=== PATIENT | male | born 2000 | race Caucasian/White ===

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

== ENCOUNTER 2021-03-18 11:26 | Emergency (ER) | payer OTHER ==
[~2021-03-18] VITALS: Ht 180.3 cm; Wt 86.2 kg
[~2021-03-18 11:26] MED LIST changes: +CLINDAMYCIN HC300 MG PO; +HYDROCODONE-AC1 EAC1 PO
[2021-03-18] MEDS ORDERED: ZOFRAN4 MG PO (12:57)
== END 2021-03-18 13:18 | disposition home or self-care (01) ==
LOC: ED 11:26
DX: M25.552 Pain in left hip (principal); Z20.822 Contact with and (suspected) exposure to COVID-19; R11.10 Vomiting, unspecified; K21.9 Gastro-esophageal reflux disease without esophagitis; F17.200 Nicotine dependence, unspecified, uncomplicated

== ENCOUNTER 2021-11-05 19:47 | Emergency (ER) | payer OTHER ==
[~2021-11-05 19:47] MED LIST changes: +ZOFRAN4 MG PO
[2021-11-05] MEDS ORDERED: NAPROXEN250 MG PO (21:05)
== END 2021-11-05 21:31 | disposition home or self-care (01) ==
LOC: ED 19:47
DX: S60.222A Contusion of left hand, initial encounter (principal); X58.XXXA Exposure to other specified factors, initial encounter; Y93.89 Activity, other specified; Y92.89 Other specified places as the place of occurrence of the external cause; Y99.8 Other external cause status

== ENCOUNTER → 2021-11-29 | Outpatient (CLI) | payer OTHER ==
[~2021-11-29] MED LIST changes: +NAPROXEN250 MG PO
== END | disposition home or self-care (01) ==
LOC: RAD 12:09
PROVIDERS: ATTEND Family Medicine
DX: S60.559A Superficial foreign body of unspecified hand, initial encounter (principal); X58.XXXA Exposure to other specified factors, initial encounter; Y93.89 Activity, other specified; Y92.89 Other specified places as the place of occurrence of the external cause; Y99.8 Other external cause status

== ENCOUNTER 2022-01-08 04:12 | Emergency (ER) | payer OTHER ==
[~2022-01-08] VITALS: Ht 177.8 cm; Wt 86.2 kg
[2022-01-08] MEDS ORDERED: GENTACIDIN5 ML NAS (05:41)
[2022-01-08] MEDS ORDERED: Percocet 325 MG1 TAB PO (05:42)
[2022-01-08] MEDS ORDERED: TOBRAMYCIN5 ML OP (10:41)
[2022-01-08] MEDS ORDERED: TYLENOL325 M1 PO (16:09)
[2022-01-08] MEDS ORDERED: NAPROXEN250 MG PO (16:09)
== END 2022-01-08 05:49 | disposition home or self-care (01) ==
LOC: ED 04:12
DX: H16.133 Photokeratitis, bilateral (principal)

== ENCOUNTER 2022-04-24 21:34 | Emergency (ER) | payer OTHER ==
[~2022-04-24] VITALS: Ht 180.3 cm; Wt 61.2 kg
[~2022-04-24 21:34] MED LIST changes: +GENTACIDIN5 ML NAS; +Percocet 325 MG1 TAB PO; +TOBRAMYCIN5 ML OP; +TYLENOL325 M1 PO
[2022-04-24 22:57] LABS: BASO # 0.1 10*3/uL (0.0-0.1); BASO % 1.1 % (0.0-1.0); EOS # 0.1 10*3/uL (0.0-0.4); EOS % 1.3 % (1.0-4.0); HEMATOCRIT 41.9 % (42.0-52.0); LYMPH # 1.8 10*3/uL (1.3-4.4); LYMPH % 31.9 % (27.0-41.0); MEAN CELL VOLUME 85.3 fl (80.0-94.0); MEAN CORPUSCULAR HGB 30.3 pg (27.0-31.0); MEAN CORPUSCULAR HGB CONC 35.6 g/dl (33.0-37.0); MEAN PLATELET VOLUME 9.1 fl (9.6-12.3); MONO # 0.7 10*3/uL (0.1-1.0); MONO % 12.4 % (3.0-9.0); NEUT # 2.9 10*3/uL (2.3-7.9); NEUT % 53.3 % (47.0-73.0); PLATELET COUNT AUTOMATED 278 10*3/uL (130-400); RED BLOOD COUNT 4.91 10*6/uL (4.50-5.90); RED CELL DISTRI WIDTH 11.6 % (0-14.5); WHITE BLOOD COUNT 5.5 10*3/uL (4.8-10.8)
[2022-04-24 23:12] LABS: ALKALINE PHOSPHATASE 64 U/L (46-116); BUN 8 mg/dl (9-23); CHLORIDE 106 mmol/L (98-107); CREATININE 0.91 mg/dL (0.70-1.30); POTASSIUM 3.4 mmol/L (3.4-5.1); SGPT/ALT 10 U/L (10-49); SODIUM 139 mmol/L (136-145)
[2022-04-24 23:13] LABS: TOTAL PROTEIN 7.2 gm/dL (6.0-8.0)
[2022-04-24 23:15] LABS: THYROID STIM HORMONE (HS) 2.783 uIU/ml (0.550-4.780)
[2022-04-24] MEDS ORDERED: NAPROSYN500 MG PO (23:40)
== END 2022-04-24 23:45 | disposition home or self-care (01) ==
LOC: ED 21:34
PROVIDERS: Emergency Medicine
DX: R07.89 Other chest pain (principal); Z87.891 Personal history of nicotine dependence

== ENCOUNTER → 2022-06-20 | Outpatient (CLI) | payer OTHER | END | disposition home or self-care (01) | LOC: RAD 18:30 | PROVIDERS: ATTEND Nurse Practitioner Family | DX: R07.89 Other chest pain (principal) ==

== ENCOUNTER 2023-04-20 09:32 | Emergency (ER) | payer SELFPAY ==
[~2023-04-20] VITALS: Wt 79.4 kg
[2023-04-20 11:31] LABS: BASO # 0.1 10*3/uL (0.0-0.1); BASO % 0.5 % (0.0-1.0); HEMATOCRIT 42.1 % (42.0-52.0); LYMPH # 1.1 10*3/uL (1.3-4.4); LYMPH % 11.3 % (27.0-41.0); MEAN CELL VOLUME 86.3 fl (80.0-94.0); MEAN CORPUSCULAR HGB 30.5 pg (27.0-31.0); MEAN CORPUSCULAR HGB CONC 35.4 g/dl (33.0-37.0); MONO # 0.4 10*3/uL (0.1-1.0); MONO % 4.4 % (3.0-9.0); NEUT # 7.8 10*3/uL (2.3-7.9); NEUT % 83.6 % (47.0-73.0); PLATELET COUNT AUTOMATED 286 10*3/uL (130-400); RED BLOOD COUNT 4.88 10*6/uL (4.50-5.90); RED CELL DISTRI WIDTH 11.9 % (0-14.5); WHITE BLOOD COUNT 9.4 10*3/uL (4.8-10.8)
[2023-04-20 12:01] LABS: ALKALINE PHOSPHATASE 65 U/L (46-116); BUN 9 mg/dl (9-23); CHLORIDE 108 mmol/L (98-107); CPK 317 U/L (34-171); POTASSIUM 4.1 mmol/L (3.4-5.1); SGPT/ALT 26 U/L (5-49); TOTAL PROTEIN 7.3 gm/dL (6.0-8.0)
[2023-04-20 12:02] LABS: ETHYL ALCOHOL < 3.0 mg/dl (<3)
== END 2023-04-20 13:53 | disposition home or self-care (01) ==
LOC: ED 09:32
PROVIDERS: Emergency Medicine
DX: F32.A Depression, unspecified (principal); G43.909 Migraine, unspecified, not intractable, without status migrainosus; Z98.890 Other specified postprocedural states; Z72.0 Tobacco use; Z79.899 Other long term (current) drug therapy

== ENCOUNTER 2023-12-23 13:58 | Emergency (ER) | payer SELFPAY ==
[~2023-12-23] VITALS: Ht 180.3 cm; Wt 74.8 kg
[2023-12-23] MEDS ORDERED: CEPHALEXIN 500 MG CAP PO ONE (14:30)
[2023-12-23] MEDS ORDERED: Acetaminophen/Oxycodone 5 MG/325 MG TABLET PO ONE (14:30)
[2023-12-23] MEDS ORDERED: MELOXICAM15 MG PO (15:43)
[2023-12-23] MEDS ORDERED: CEPHALEXIN500 M1 PO (15:43)
== END 2023-12-23 17:22 | disposition home or self-care (01) ==
LOC: ED 13:58
DX: S61.213A Laceration without foreign body of left middle finger without damage to nail, initial encounter (principal); S61.217A Laceration without foreign body of left little finger without damage to nail, initial encounter; Z98.890 Other specified postprocedural states; Z72.0 Tobacco use; W26.8XXA Contact with other sharp object(s), not elsewhere classified, initial encounter; Y93.89 Activity, other specified; Y92.89 Other specified places as the place of occurrence of the external cause; Y99.8 Other external cause status

== ENCOUNTER 2024-01-01 10:23 | Emergency (ER) | payer MEDICAID ==
[~2024-01-01] VITALS: Ht 180.3 cm; Wt 72.6 kg
[~2024-01-01 10:23] MED LIST changes: +MELOXICAM15 MG PO
[2024-01-01 11:00] LABS: BASO # 0.1 10*3/uL (0.0-0.1); BASO % 0.7 % (0.0-1.0); EOS % 0.5 % (1.0-4.0); LYMPH # 1.4 10*3/uL (1.3-4.4); LYMPH % 15.9 % (27.0-41.0); MEAN CELL VOLUME 88.5 fl (80.0-94.0); MEAN CORPUSCULAR HGB 30.2 pg (27.0-31.0); MEAN CORPUSCULAR HGB CONC 34.1 g/dl (33.0-37.0); MEAN PLATELET VOLUME 8.7 fl (9.6-12.3); MONO # 0.6 10*3/uL (0.1-1.0); MONO % 6.7 % (3.0-9.0); NEUT # 6.5 10*3/uL (2.3-7.9); PLATELET COUNT AUTOMATED 329 10*3/uL (130-400); RED BLOOD COUNT 4.97 10*6/uL (4.50-5.90); RED CELL DISTRI WIDTH 11.5 % (0-14.5); WHITE BLOOD COUNT 8.5 10*3/uL (4.8-10.8)
[2024-01-01 11:25] LABS: ALKALINE PHOSPHATASE 73 U/L (46-116); BUN 9 mg/dl (9-23); CHLORIDE 107 mmol/L (98-107); POTASSIUM 3.7 mmol/L (3.4-5.1); SGPT/ALT 13 U/L (5-49); TOTAL PROTEIN 7.3 gm/dL (6.0-8.0)
[2024-01-01 11:27] LABS: ETHYL ALCOHOL < 3.0 mg/dl (<3)
[2024-01-01 14:14] LABS: URINE AMPHETAMINES Negative (1000ng/ml); URINE BARBITURATES Negative (200ng/ml); URINE BENZODIAZEPINES Negative (200ng/ml); URINE CANNABINOIDS (THC) Positive (50ng/ml); URINE COCAINE Negative (300ng/ml); URINE METHADONE Negative (300ng/ml); URINE OPIATES Negative (300ng/ml); URINE PHENCYCLIDINE Negative (25ng/ml)
== END 2024-01-01 14:26 | disposition home or self-care (01) ==
LOC: ED 10:23
PROVIDERS: Internal Medicine
DX: R55 Syncope and collapse (principal); R51.9 Headache, unspecified; R53.1 Weakness; F17.200 Nicotine dependence, unspecified, uncomplicated

== ENCOUNTER 2024-01-02 16:33 | Emergency (ER) | payer MEDICAID ==
[~2024-01-02] VITALS: Ht 180.3 cm; Wt 72.6 kg
== END 2024-01-02 17:38 | disposition home or self-care (01) ==
LOC: ED 16:33
DX: S61.213D Laceration without foreign body of left middle finger without damage to nail, subsequent encounter (principal); Z48.01 Encounter for change or removal of surgical wound dressing; W45.8XXD Other foreign body or object entering through skin, subsequent encounter; Z87.891 Personal history of nicotine dependence

== ENCOUNTER 2025-01-03 20:31 | Emergency (ER) | payer SELFPAY ==
[~2025-01-03] VITALS: Ht 180.3 cm; Wt 72.6 kg
== END 2025-01-03 22:08 | disposition home or self-care (01) ==
LOC: ED 20:31
DX: S80.11XA Contusion of right lower leg, initial encounter (principal); F17.200 Nicotine dependence, unspecified, uncomplicated; W22.8XXA Striking against or struck by other objects, initial encounter; Y93.89 Activity, other specified; Y92.89 Other specified places as the place of occurrence of the external cause; Y99.8 Other external cause status